=== PATIENT | female | born 1945 | race Caucasian/White ===

== ENCOUNTER 2016-08-24 07:58 | Outpatient (CLI) | payer MEDICARE, BC | END 2016-08-24 07:59 | disposition home or self-care (01) | LOC: BURLAB 07:58 | PROVIDERS: ATTEND Family Medicine | DX: E11.9 Type 2 diabetes mellitus without complications (principal) | CPT/HCPCS: 36415; 83036 ==

== ENCOUNTER 2016-09-13 08:38 | Outpatient (CLI) | payer MEDICARE, BC ==
--- NOTE | 2016-09-13 18:25 | RAD ---
RIGHT WRIST THREE VIEWS 09/13/16 Deformity of the distal radius is typical of old well healed trauma. An ununited ulnar styloid proce ss fracture is seen. The scaphoid is irregular and appears to have been involved by old trauma as well. The distal pole i s slightly sclerotic, though not fragmented. This does raise some possibility of vascular necrosis. It might be well to refer the patient to an orthopedic surgeon for evaluation. The lunate is slightl y sclerotic but in no way compressed or fragmented. IMPRESSION: Old traumatic changes to the distal radius and ulna. Suggestion of prior trauma to the scaphoid. See comments above. A followup by orthopedics is probably in order. POS: HOME
== END 2016-09-13 08:39 | disposition home or self-care (01) ==
LOC: BURRAD 08:38
PROVIDERS: ATTEND Family Medicine
DX: M25.531 Pain in right wrist (principal)

== ENCOUNTER 2017-01-30 08:46 | Outpatient (CLI) | payer MEDICARE, BC ==
[2017-01-30 09:40] LABS: ALT (SGPT) 15 U/L (8-55); AST (SGOT) 18 U/L (5-34); Albumin 4.2 g/dL (3.4-4.8); Alkaline Phosphatase 66 U/L (40-150); Anion Gap 13 mmol/L (10-20); BUN (Urea Nitrogen) 14 mg/dL (9.8-20.1); Bilirubin, Total 0.5 mg/dL (0.2-1.2); Calc. Creatinine Clearance 0 mL/min (70-130); Calcium 9.4 mg/dL (7.8-10.44); Carbon Dioxide 26 mmol/L (23-31); Cardiac Risk 4.2 (Less than 4.5); Chloride 103 mmol/L (98-107); Cholesterol 191 mg/dl (< 200 Desired); Estimated GFR-MDRD 62; Glucose 233 mg/dL (83-110); HDL Cholesterol 46 mg/dL (>60 Neg Risk); LDL Cholesterol, Calculated 110 mg/dL; Potassium 4.4 mmol/L (3.5-5.1); Protein, Total 7.2 g/dL (6.0-8.3); Sodium 138 mmol/L (136-145); Triglycerides 177 mg/dL (Less than 150)
[2017-01-30 18:22] LABS: Creatinine, Urine 222.06 mg/dL (47-110); Microalbumin Urine 28.2 mg/dL (0.5-50.0)
== END 2017-01-30 08:47 | disposition home or self-care (01) ==
LOC: BURLAB 08:46
PROVIDERS: ATTEND Family Medicine
DX: E78.1 Pure hyperglyceridemia (principal); E11.65 Type 2 diabetes mellitus with hyperglycemia
CPT/HCPCS: 36415; 80053; 80061; 82043; 83036

== ENCOUNTER 2017-09-04 09:04 | Outpatient (CLI) | payer MEDICARE, BC ==
--- NOTE | 2017-09-04 19:38 | RAD ---
CHEST TWO VIEWS: 09/04/17 No prior films were available for comparison. The heart is upper normal in size but there are no congestive changes or pleural effusions. Calcific changes are seen in the aortic arch. An old healed right humeral neck fracture was noted. Clips are s een over the left hemithorax from prior surgery. There is some scarring in the left base, but no fely r infiltrates were apparent. IMPRESSION: Chronic changes but no definite acute finding. POS: HOME
== END 2017-09-04 09:05 | disposition home or self-care (01) ==
LOC: BURRAD 09:04
PROVIDERS: ATTEND Family Medicine
DX: R06.00 Dyspnea, unspecified (principal)
CPT/HCPCS: 71046

== ENCOUNTER 2020-02-06 19:08 | Inpatient (IN) | payer MEDICARE, BC, OTHER ==
[~2020-02-06 19:08] MED LIST: Iopamidol 370 76% 100 ML VIAL ONE
[2020-02-06 20:29] LABS: AST (SGOT) 21 U/L (5-34); Albumin 4.1 g/dL (3.4-4.8); Alkaline Phosphatase 82 U/L (40-110); Anion Gap 15 mmol/L (10-20); BUN (Urea Nitrogen) 14 mg/dL (9.8-20.1); Bilirubin, Total 0.3 mg/dL (0.2-1.2); Calc. Creatinine Clearance 0 mL/min (70-130); Calcium 9.1 mg/dL (7.8-10.44); Carbon Dioxide 25 mmol/L (23-31); Chloride 101 mmol/L (98-107); Estimated GFR-MDRD 48; Globulin 3.2 g/dL (2.4-3.5); Glucose 247 mg/dL (83-110); Potassium 4.2 mmol/L (3.5-5.1); Protein, Total 7.3 g/dL (6.0-8.3); Sodium 137 mmol/L (136-145)
[2020-02-06 20:42] LABS: #Basophils 0.1 thou/uL (0.0-0.2); #Eosinphils 0.3 thou/uL (0.0-0.7); #Lymphocytes 2.2 thou/uL (1.20-3.40); #Monocytes 0.8 thou/uL (0.11-0.59); #Neutrophils 6.3 thou/uL (1.40-6.50); %Basophils 0.9 % (0.0-1.0); %Eosinophils 2.7 % (0.0-10.0); %Monocytes 8.4 % (0.0-10.0); Anisocytosis SLIGHT = 6-15 cells (100X) (0-5/hpf); Elliptocytes SLIGHT = 2-5 cells (100X) (0-1/hpf); Hypochromia SLIGHT = 6-15 cells (100X) (0-5/hpf); MDiff Complete? YES; Mean Corpuscular HGB CONC 28.3 g/dL (32.0-36.0); Mean Corpuscular Hemoglobin 21.5 pg (27.0-31.0); Mean Corpuscular Volume 75.8 fL (78.0-98.0); Microcytosis SLIGHT = 6-15 cells (100X) (0-5/hpf); Platelet Count 297 thou/uL (130-400); Poikilocytosis SLIGHT = 6-15 cells (100X) (0-5/hpf); RBC Distribution Width 15.2 % (11.5-14.5); Red Blood Cell (RBC) Count 4.64 mill/uL (4.20-5.40); Rouleaux Formation SLIGHT = 1-5 cells (100X) (None Seen); Schistocytes SLIGHT = 2-5 cells (100X) (0-1/hpf); Tear Drops SLIGHT = 2-5 cells (100X) (0-1/hpf); White Blood Cell (WBC) Count 9.7 thou/uL (4.8-10.8)
[2020-02-06 21:06] LABS: ALT (SGPT) 12 U/L (8-55)
--- NOTE | 2020-02-06 21:15 | RAD ---
PORTABLE CHEST: 02/06/20 An AP portable film at 1955 is compared with a 09/04/17 study. Findings are similar over the interval. The heart is not enlarged. Calcification is seen in the aorti c arch. Numerous surgical clips are seen over the left chest as previously. There is no vascular pelon estion, edema, or major lobar infiltrate. Density in the right cardiophrenic angle is thought to be a fat pad. IMPRESSION: Chronic changes but no acute findings. POS: HOME
--- NOTE | 2020-02-06 22:12 | CT ---
CT ANGIO OF THE CHEST WITH CONTRAST: 02/06/[address] of the chest was done for evaluation of shortness of breath in this patient with cough. The total amount of contrast used was reduced due to a slightly low GFR. There is good opacification of the pulmonary arteries. There were no defects to suggest emboli. There is no sign of aortic dissection or aneurysm. The mediastinum showed no mass. There are a few promine nt nodes, but the largest is only 1.3 cm in size. There is no sign of pericardial effusion. Both elan nary arteries fill. Lungs are clear. No focal infiltrate or effusion was seen. The mid esophagus seems a little thicker t vega usual, gut this could be due to it being collapsed. Scans into the upper abdomen showed no adrenal masses, or other acute findings within the areas scann ed. IMPRESSION: 1. No evidence of pulmonary embolism. 2. No acute thoracic findings. 3. Equivocal esophageal thickening, mid esophagus. Findings discussed with Dr. Vegas at 2152 on 02/06/20. POS: HOME
[2020-02-06] MEDS ORDERED: Amlodipine 5 MG TAB ONE (22:18)
[2020-02-06] MEDS ORDERED: methylPREDNISolone Sod Succ/PF 125 MG/2 ML VIAL ONE (22:46)
[2020-02-06] MEDS ORDERED: Azithromycin 250 MG TAB ONE (22:46)
[2020-02-06] MEDS ORDERED: predniSONE 20 MG TAB ONE (22:50)
[2020-02-07] MEDS ORDERED: Bacteriostatic Water 30 ML VIAL FS PRN (00:02)
[2020-02-07 02:03] VITALS: BMI 27.5
[2020-02-07] MEDS ORDERED: predniSONE 20 MG TAB PO SCH (08:00)
[2020-02-07] MEDS ORDERED: Dextrose 5% in Water 1,000 ML IV PRN (08:20)
[2020-02-07] MEDS ORDERED: Dextrose 50% Abboject 50 ML SYRINGE SLOW IVP PRN (08:20)
[2020-02-07] MEDS ORDERED: HumaLOG 300 UNITS/3 ML VIAL SC PRN (08:20)
[2020-02-07] MEDS: HumaLOG 300 UNITS/3 ML VIAL SC PRN ×3 (08:54→16:53)
[2020-02-07] MEDS ORDERED: Lantus 1000 UNITS/10 ML VIAL SC SCH ×2 (09:00→11:00)
[2020-02-07] MEDS ORDERED: methylPREDNISolone Sod Succ 40 MG VIAL IVP SCH (09:00)
[2020-02-07] MEDS ORDERED: Azithromycin 250 MG TAB PO SCH ×3 (09:00)
[2020-02-07] MEDS ORDERED: Lisinopril 5 MG TAB PO SCH (09:00)
[2020-02-07] MEDS: metFORMIN 500 MG TAB PO SCH ×2 (10:21→16:52)
[2020-02-07] MEDS: Amlodipine 5 MG TAB PO SCH (10:21)
[2020-02-07] MEDS: Lisinopril 5 MG TAB PO SCH (10:22)
[2020-02-07] MEDS: Atorvastatin Calcium 40 MG TAB PO SCH (10:23)
[2020-02-07] MEDS: Hydrochlorothiazide 25 MG TAB PO SCH (10:24)
[2020-02-07 14:14] LABS: SARS-CoV-2 MS2 Positive; SARS-CoV-2 N Gene Negative; SARS-CoV-2 S Gene Negative; SARS-CoV-2 by NAA Not Detected (NotDetected); SARS-CoV-2 orf1ab Negative
--- NOTE | 2020-02-07 20:16 | HP ---
CHIEF COMPLAINT: Shortness of breath. HISTORY OF PRESENT ILLNESS: The patient is an extremely pleasant 74-year-old white female with greater than 40 pack-year history of smoking, who presents to the emergency room with a several-day history of increasing shortness of breath. The patient says that she cannot catch her breath. She feels congested in her nose as well as in her upper lung area. She has had some cough, nonproductive. No fevers nor chills. She says the symptoms have been progressive over the last week to 2 weeks, but has had intermittent episodes of shortness of breath like this, for which she takes an albuterol inhaler. She also takes a daily nose spray of a pseudoephedrine type nose spray and Vicks because of her subjective feelings of shortness of breath. The patient does report a history of bronchitis. She says that she had pneumonia last year and a remote history of tracheostomy as a young child or adolescent after accident with a horse. The patient denies any fevers or chills. Appetite has been good. The patient has no chest pain reported. PAST MEDICAL HISTORY: Significant for, 1. Diabetes, insulin dependent. 2. Hypertension. 3. History of bronchitis. PAST SURGICAL HISTORY: Includes tubal ligation and left mastectomy. SOCIAL HISTORY: Denies alcohol or social drug use. She smokes 1/2 to 1 pack per day for greater than 40 years. Otherwise, the patient lives alone, has been independent in all activities of daily living. ALLERGIES: NO KNOWN DRUG ALLERGIES. CURRENT MEDICATIONS: 1. Ventolin inhaler two puffs p.r.n. 2. Levothyroxine 125 mcg daily. 3. Metformin 1000 mg p.o. b.i.d. 4. Lisinopril 5 mg daily. 5. Atorvastatin 40 mg daily. 6. Trulicity injection once a week. 7. Toujeo insulin 35 units daily. REVIEW OF SYSTEMS: As in HPI, the patient reports some occasional anxiety. She says that she feels anxious from time to time that is mainly related to her shortness of breath feeling. She denies depression. The patient reports some nasal congestion chronically, which she is on chronic nasal sprays, [id number]. The patient denies any sore throat. Appetite has been good. No visual changes. The patient reports subjective shortness of breath without chest pain. Denies obvious wheezes. Occasional dry cough. The patient denies any nausea, vomiting, or diarrhea. No gastroesophageal reflux like symptoms and no reflux nor heartburn symptoms. The patient denies any abdominal pain, nausea, vomiting, or diarrhea. No dysuria, hematuria, or change in urinary frequency. No rashes reported. No significant back pain. The patient reports her weight is stable. LABORATORY DATA: Significant for a CBC which showed a white count of 9700 with H and H of 10.0 and 35.2. Chemistry significant for creatinine of 1.11, and blood sugar nonfasting at 247. BNP was 102.3. Troponin was less than 0.01. EKG showed some vague nonspecific T wave changes, but no acute findings. CT scan of the chest was performed with contrast which was negative for PE. Chest x-ray was negative as well. No pneumonia was seen. ASSESSMENT AND PLAN: 1. Chronic obstructive pulmonary disease exacerbation. The patient has never been diagnosed with chronic obstructive pulmonary disease, but with her chronic smoking history as well as the need for albuterol inhaler, I suspect some chronic obstructive pulmonary disease. She does report walking pneumonia last year. We will start patient on IV steroids, frequent neb treatments, oxygen 2 L per nasal cannula in order to keep sats greater than 90%. Currently, she is 92% on room air, but does become hypoxic once ambulating with O2 sats below 90. We will follow her disease as her symptoms improve once she is put on steroids for greater than 24 hours to the IV. 2. Hypertension. Blood pressure has been high. Her blood pressure systolic was 196 in the emergency room. We will add amlodipine 2.5 mg per day plus diuretic hydrochlorothiazide on top of her lisinopril and follow her blood pressures. 3. Diabetes mellitus, insulin dependent. We will place patient on Lantus insulin 15 units twice a day plus a sliding scale. Likely blood sugars will be fine with the steroid use. DISPOSITION: The patient was admitted at 7:00 p.m., it is unlikely her symptoms will significantly improve over the next 24 hours, will likely need 2 midnights to manage her blood sugar with the steroid use as well as the need for probably 48 hours worth of IV steroids to improve her respiratory symptoms. We will continue to monitor. Hopefully after 48 hours, respiratory symptoms will improve to the point where she will be able to be discharged to home. Job ID: [id number]
[2020-02-07] MEDS ORDERED: guaiFENesin ER 600 MG TAB PO PRN (21:49)
[2020-02-07] MEDS: methylPREDNISolone Sod Succ 40 MG VIAL IVP SCH ×2 (22:03→22:08)
[2020-02-07] MEDS: Acetaminophen 325 MG TAB PO PRN (22:04)
[2020-02-08] MEDS: Acetaminophen 325 MG TAB PO PRN (05:45)
[2020-02-08] MEDS ORDERED: Levothyroxine Sodium 100 MCG TAB PO SCH (06:00)
[2020-02-08] MEDS ORDERED: Levothyroxine Sodium 25 MCG TAB PO SCH (06:00)
[2020-02-08] MEDS: methylPREDNISolone Sod Succ 40 MG VIAL IVP SCH (08:59)
[2020-02-08] MEDS: Atorvastatin Calcium 40 MG TAB PO SCH (09:00)
[2020-02-08] MEDS ORDERED: Azithromycin 250 MG TAB PO SCH (09:00)
[2020-02-08] MEDS: metFORMIN 500 MG TAB PO SCH ×2 (09:00→17:03)
[2020-02-08] MEDS: Lisinopril 5 MG TAB PO SCH (09:02)
[2020-02-08] MEDS: Hydrochlorothiazide 25 MG TAB PO SCH (09:14)
[2020-02-08] MEDS: Amlodipine 5 MG TAB PO SCH (09:15)
[2020-02-08] MEDS: HumaLOG 300 UNITS/3 ML VIAL SC PRN ×3 (09:30→16:59)
--- NOTE | 2020-02-08 10:20 | RAD ---
CHEST 2 VIEWS: DATE: 02/08/2020. FINDINGS: PA and lateral views are compared with the 02/05 study. There has been no adverse interval change. The heart size is unchanged. The lungs are clear. No fo bashir infiltrate or effusion was seen. There is no vascular congestion or edema. Surgical clips are n oted over the left hemithorax as usual. IMPRESSION: No acute finding. POS: HOME
[2020-02-08 17:01] VITALS: BP 160/96; TEMP 97.6
--- NOTE | 2020-02-08 17:35 | DIS ---
DATE OF ADMISSION: 02/06/2020 DATE OF DISCHARGE: 02/08/2020 ADMISSION DIAGNOSIS: Chronic obstructive pulmonary disease exacerbation. DISCHARGE DIAGNOSES: 1. Chronic obstructive pulmonary disease exacerbation, improving. 2. Hypertension, improved. BRIEF SUMMARY OF HOSPITAL COURSE: The patient is extremely pleasant 74-year-old white female with a greater than a pack-year history of smoking, presented to the emergency room with several-day history of increased shortness of breath with dry cough, occasionally productive of clear sputum without fever or chills. The patient had significant air hunger and anxiety and thus presented to the emergency room. In the emergency room, patient was found to be hypoxic with ambulation and tachycardic and thus was admitted to the hospital to treat her COPD. In addition, her blood pressure was significantly elevated in the 170s to 190s systolic. There was a concern of possibly the patient was having flash pulmonary edema at night, which is when she is having most of her breathing problems, which could have exacerbated her shortness of breath requiring adjustment of her blood pressure medications. She had a CT angio of the chest, which showed no PE and chest x-ray which was normal on admission. the patient was admitted on IV Solu-Medrol. She was placed on p.o. Zithromax 500 mg a day for 3 days. She was afebrile throughout her hospitalization. Her O2 sats were in the high 90s on 2 L, was greater than 90 on room air. Her shortness of breath significantly improved on her 2 days of IV Solu-Medrol. Repeat chest x-ray on day of discharge was normal. Patient was able to ambulate. She still had a cough, dry, occasionally productive of yellow sputum, but was deemed appropriate enough to be stable for discharge to home. DISCHARGE MEDICATIONS: 1. Ventolin inhaler 2 puffs p.r.n. shortness of breath. 2. Levothyroxine 125 mcg daily. 3. Metformin 1000 mg p.o. b.i.d. 4. Lisinopril, she will stop, switch to Zestoretic 04/26.5 one tablet p.o. q.a.m. 5. She is also started on amlodipine 2.5 mg daily. 6. Atorvastatin 40 mg daily. 7. Trulicity injections once a week. 8. Toujeo, she was told to increase her dose nightly Toujeo from 35 to 40 units with her IV Solu-Medrol. Her blood sugar was spiking at 300 and 400 range, thus need increased insulin. I discussed with the patient p.o. prednisone taper. Patient adamantly refused. She said that she will not take any further steroids, but will discuss this with her primary care physician, Dr. Mercedes. DISCHARGE ACTIVITY: Will be as tolerated. DISCHARGE DIET: Will be a low-salt diet. FOLLOWUP: Patient will follow up with Dr. Mercedes within this week. I recommended smoking cessation. Patient did not feel like smoking was the cause of her shortness of breath and breathing issues. I told her she likely is developing COPD, emphysema, but the patient did not wish to quit smoking at this time. She refused a p.o. prednisone taper as well. She will continue her albuterol inhaler. Job ID: [id number]
[2020-02-08] MEDS ORDERED: Lantus 1000 UNITS/10 ML VIAL SC SCH (21:00)
--- NOTE | 2020-02-12 00:02 | PQF ---
CLINICAL DOCUMENTATION CLARIFICATION FORM: Dear : ____Stephen Vivas Date / Time: ____02/12/2020 Please exercise your independent, professional judgment in responding to the clarification form. Clinical indicators are provided on the bottom of this form for your review Please check appropriate box(es) to clarify if the following diagnosis has been ruled in our ruled out: Flash pulmonary edema [ ] Ruled in diagnosis [ ] Continue to treat [ ] Resolved [ ] Ruled out diagnosis [ ] Improving [ ] Cannot rule out diagnosis [ x] Other diagnosis ____COPD exacerbation [ ] Unable to determine In addition, please specify: [ ] Acute pulmonary edema [ ] Chronic pulmonary edema [ ] Unspecified pulmonary edema No significant pulmonary edema noted Rosemarie Mitchell Physician Signature: Date/Time: For continuity of documentation, please document condition throughout progress notes and discharge summary. Thank You To be completed by CDI/Coding staff for physician review: w Present w Clinical Indicators - Signs / Symptoms / Labs w Results and Location in Medical Record w [ x] w There was a concern of possible the patient was having flash pulmonary edema at night w , 02/07, Rosemarie Mitchell MD w [ x] w CT angio of the chest, which showed no PE and chest x-ray which was normal on admission w , 02/07, Rosemarie Mitchell MD w [ x] w O sats were in the high 90s on 2L w , 02/07, Rosemarie Mitchell MD w [ x] w Does become hypoxia once ambulating with O2 sats below 90 w H and P, , Rosemarie Mitchell MD w Present w Risk Factors w Results and Location in Medical Record w [x] w COPD exacerbation w , 02/07, Rosemarie Mitchell MD w [ x] w Smokes to 1 pack per dayfor greater than 40 years w H and P, 02/07, Rosemarie Mitchell MD w w w w w w w Present w Treatments w Results and Location in Medical Record w [ x] w DuoNeb w 02/05 w [ x] w Solu-medrol.IV w 02/05 w w w w w w CDS/Hand Coper Signature: Stephen Perez Phone #: [phone] Date/Time:_ 02/12/2020 This is a permanent part of the Medical Record [facility]
== END 2020-02-08 18:34 | disposition home or self-care (01) | DRG 192 ==
LOC: BURERS 19:08 → BURMED 23:09
PROVIDERS: ADMIT Family Medicine; ATTEND Family Medicine
DX: J44.1 Chronic obstructive pulmonary disease with (acute) exacerbation (principal); I10 Essential (primary) hypertension; E11.9 Type 2 diabetes mellitus without complications; F17.210 Nicotine dependence, cigarettes, uncomplicated; Z79.4 Long term (current) use of insulin; Z98.51 Tubal ligation status; Z90.12 Acquired absence of left breast and nipple
CPT/HCPCS: 36415; 36416; 71045; 71046; 71275; 80053; 83880; 84484; 85025; 87635; 93005; J1815; J2920; J2930; J7512; J7620; Q9967; U0003